=== PATIENT | female | born 1970 | race Caucasian/White ===

== ENCOUNTER 2024-07-04 11:02 | Emergency (ER) | payer OTHER ==
[~2024-07-04] VITALS: Ht 162.6 cm; Wt 76.0 kg
[2024-07-04 11:08] VITALS: O2SAT 97
[2024-07-04 11:23] VITALS: BP 112/59; PULSE 60; RESP 16; TEMP 36.9; O2SAT 99
[2024-07-04 12:40] VITALS: TEMP 98.4
[2024-07-04] MEDS: ACETAMINOPHEN 500MG TABLET PO ONE (12:40)
[2024-07-04] MEDS ORDERED: OXYM15SP NS (13:52)
== END 2024-07-04 12:20 | disposition home or self-care (01) ==
LOC: ER 11:02
DX: G43.909 Migraine, unspecified, not intractable, without status migrainosus (principal)
CPT/HCPCS: 99284